=== PATIENT | female | born 1960 | race Caucasian/White ===

== ENCOUNTER 2017-01-10 19:01 | Emergency (ER) | payer BC ==
[2017-01-10 19:09] VITALS: RESP 16; O2SAT 95
--- NOTE | 2017-01-10 21:47 | EDPHY ---
H & P Stated Complaint: pointer finger lac, left Time Seen by Provider: 01/10/17 19:33 HPI/ROS: Chief complaint: Left pointer finger laceration History of present illness: 56-year-old female presents to the emergency department for left pointer finger laceration. 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 She has had pain and bleeding. She can still move the finger. She denies other injuries. Her tetanus is up-to-date. - Personal History Current Tetanus/Diphtheria Vaccine: Yes Current Tetanus Diphtheria and Acellular Pertussis (TDAP): Yes Tetanus Vaccine Date: 2014 - Medical/Surgical History Hx Asthma: No Hx Chronic Respiratory Disease: No Hx Diabetes: No Hx Cardiac Disease: No Hx Renal Disease: No Hx Cirrhosis: No Hx Alcoholism: No Hx HIV/AIDS: No Hx Splenectomy or Spleen Trauma: No Other PMH: PMH: denies - Social History Smoking Status: Never smoked - Physical Exam Exam: General: Alert, nontoxic Skin: Multiple lacerations to the tip of the left pointer finger, essentially as macerated Musculoskeletal: She is flexing extending the left pointer finger in the DIPJ, PIP and MCP joint well Vascular: Capillary refill brisk in the left pointer finger Neurologic: Light touch sensation intact in left pointer finger, decreased 2 point discrimination to the medial aspect of the left pointer finger Constitutional: Initial Vital Signs Temperature (C) 36.9 C 01/10/17 19:07 Heart Rate 81 01/10/17 19:07 Respiratory Rate 16 01/10/17 19:07 Blood Pressure 161/96 H 01/10/17 19:07 O2 Sat (%) 95 01/10/17 19:07 O2 Delivery Mode Room Air Allergies/Adverse Reactions: Sulfa (Sulfonamide Antibiotics) Allergy (Verified 01/10/17 19:09) Home Medications: Medication Instructions Recorded NK [No Known Home Meds] 01/10/17 Medical Decision Making - Diagnostics Imaging Results: Imaging Impressions Finger X-Ray 01/10/17 19:53 Impression: No acute osseous findings. Imaging: I viewed and interpreted images myself Procedures: Procedure: Laceration repair. Verbal consent was obtained from the patient. The 1.5 cm laceration on the left pointer finger was anesthetized in the usual fashion. The wound was irrigated, draped and explored to its base with a gloved finger. There were no deep structures involved. No tendon injury was identified. The wound was repaired with 5 0 Prolene. The wound repair was simple. The procedure was performed by myself. ED Course/Re-evaluation: Patient seen under the supervision of my secondary supervising physician Dr. Vijay Fam. Patient presents to the emergency department for a laceration to her left pointer finger. The finger is vascularly intact. I am concerned for nerve injury. X-ray is negative. Wound has been anesthetized, cleaned, repaired and dressed. I have consulted with hand surgery physician access services assistant Moises. He is comfortable with discharge home and following up in clinic. I have discussed at length the importance of close follow-up with hand surgery with the patient and she is given referral information. Home care is discussed. Return precautions are given. Patient voiced understanding and agreement with plan. Differential Diagnosis: Included but not limited to laceration, deep structure injury, foreign body contamination Departure - Departure Disposition: Home, Routine, Self-Care Clinical Impression: Finger laceration Qualifiers: Encounter type: initial encounter Finger: index finger Damage to nail status: with damage Foreign body presence: without foreign body Laterality: left Qualified Code(s): S61.311A - Laceration without foreign body of left index finger with damage to nail, initial encounter Condition: Good Instructions: Care For Your Stitches (ED), Laceration (ED), Acute Wounds (ED) Additional Instructions: Follow-up with Hand surgery next week for recheck. I am concerned you have a nerve injury in your finger. Stitches to be removed in 7-10 days. If symptoms worsen or new symptoms develop return to the emergency room for recheck Referrals: NONE *PRIMARY CARE P,. [Primary Care Provider] - As per Instructions Jacinto Baltazar MD [Medical Doctor] - As per Instructions
[2017-01-10 22:06] VITALS: BP 146/104; PULSE 73; TEMP 97.5
== END 2017-01-10 22:06 | disposition home or self-care (01) ==
PROC: 0HQGXZZ Repair Left Hand Skin, External Approach (ICD-10-PCS; principal; 2017-01-10)
DX: S61.211A Laceration without foreign body of left index finger without damage to nail, initial encounter (principal); W29.0XXA Contact with powered kitchen appliance, initial encounter